=== PATIENT | female | born 1965 | race Caucasian/White ===

== ENCOUNTER → 2018-11-26 | Day surgery (SDC) | payer OTHER, BC ==
[2012-06-15 16:11] VITALS: BP 110/70
--- NOTE | 2018-11-26 11:25 | RAD REPORT ---
EXAM DESCRIPTION: US - Breast Core BX w/US Guidance - 11/26/2018 10:18 am CLINICAL HISTORY: ICD R 92.8 COMPARISON: October 2018 TECHNIQUE: The risks, benefits alternatives to the procedure were explained to the patient and infor med consent obtained. The skin and subcutaneous tissues were anesthetized with Lidocaine. Under sonographic guidance 3 vacu um assisted core biopsies of the small lower retroareolar mass performed. 12 centimeter needle was ut ilized. 2 centimeter core specimens obtained. Specimens were given to pathology. Subsequently a localizing clip was placed. Patient experienced no immediate complication IMPRESSION: Vacuum assisted core biopsies of a small lower retroareolar mass within the right breast
== END ==
LOC: DS 09:27
PROVIDERS: ATTEND Obstetrics & Gynecology
DX: N60.31 Fibrosclerosis of right breast (principal); N64.1 Fat necrosis of breast
CPT/HCPCS: 19083; 88305

== ENCOUNTER 2019-06-14 12:05 | Emergency (ER) | payer BC, OTHER ==
[2019-06-14] MEDS ORDERED: KETOROLAC 30 MG/ML INJ ONE (12:36)
[2019-06-14] MEDS ORDERED: DIAZEPAM 5 MG TABLET ONE (12:36)
--- NOTE | 2019-06-14 13:31 | RAD REPORT ---
EXAM DESCRIPTION: RAD - Forearm Right - 06/14/2019 1:20 pm CLINICAL HISTORY: Fall, right arm pain COMPARISON: None. FINDINGS: No fracture is identified. There is no dislocation or periosteal reaction noted. No foreign body or other soft tissue abnormality. IMPRESSION: Negative right forearm examination.
--- NOTE | 2019-06-14 13:31 | RAD REPORT ---
EXAM DESCRIPTION: RAD - Knee Right 3 View - 06/14/2019 1:20 pm CLINICAL HISTORY: Fall, right knee pain COMPARISON: None. FINDINGS: No fracture, dislocation or periosteal reaction.No joint effusion seen. No joint space katya rowing. No foreign body or other soft tissue abnormality. IMPRESSION: Negative right knee. Clinical concerns for internal derangement or occult bony injury could be further assessed with MR im aging.
--- NOTE | 2019-06-14 13:44 | ER ---
Nurse's Notes [facility] Name: Aida Ahuja Age: 53 yrs Sex: Female : 1965 Arrival Date: 06/14/2019 Time: 12:08 Bed 14 Private MD: Elías Tse Diagnosis: Fall on same level from slipping, tripping and stumbling;Contusion of right forearm;Contusion of right hip;Contusion of right knee Presentation: 06/14 12:15 Presenting complaint: Patient states: I was at work and slipped in the bathroom, pain la1 in right knee and wrist. Transition of care: patient was not received from another setting of care. Onset of symptoms was June 14, 2019. Risk Assessment: Do you want to hurt yourself or someone else? Patient reports no desire to harm self or others. Initial Sepsis Screen: Does the patient meet any 2 criteria? No. Patient's initial sepsis screen is negative. Does the patient have a suspected source of infection? No. Patient's initial sepsis screen is negative. Care prior to arrival: None. 12:15 Method Of Arrival: Ambulatory la1 12:15 Acuity: CARLOS 4 la1 Triage Assessment: 12:15 General: Appears in no apparent distress. uncomfortable, Behavior is calm, cooperative, hj appropriate for age. Pain: Complains of pain in right hand and dorsal aspect of right wrist and right leg and lateral aspect of right knee. 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 - Social history:: Smoking status: Patient/guardian denies using tobacco. - Ebola Screening: : No symptoms or risks identified at this time. Screenin:15 Abuse screen: Denies threats or abuse. Denies injuries from another. Nutritional hj screening: No deficits noted. Tuberculosis screening: No symptoms or risk factors identified. Fall Risk None identified. Assessment: 12:15 General: Appears in no apparent distress. uncomfortable, Behavior is calm, cooperative, hj appropriate for age. Pain: Complains of pain in right hand and dorsal aspect of right wrist and right leg and lateral aspect of right knee. Neuro: Level of Consciousness is awake, alert, obeys commands, Oriented to person, place, time, situation, Appropriate for age. Cardiovascular: Capillary refill < 3 seconds Patient's skin is warm and dry. Respiratory: Airway is patent Respiratory effort is even, unlabored, Respiratory pattern is regular, symmetrical. GI: No signs and/or symptoms were reported involving the gastrointestinal system. Abdomen is. : No signs and/or symptoms were reported regarding the genitourinary system. EENT: No signs and/or symptoms were reported regarding the EENT system. Derm: No signs and/or symptoms reported regarding the dermatologic system. Musculoskeletal: Reports pain in right hand and dorsal aspect of right wrist and right leg and lateral aspect of right knee. Vital Signs: 12:16 BP 125 / 90; Pulse 95; Resp 16; Temp 97.5; Pulse Ox 98% on R/A; Weight 69.4 kg; Height la1 5 ft. 2 in. (157.48 cm); 12:16 Body Mass Index 27.98 (69.40 kg, 157.48 cm) la1 ED Course: 12:08 Patient arrived in ED. mr 12:08 Elías Tse MD is Private Physician. mr 12:15 Triage completed. la1 12:15 Patient has correct armband on for positive identification. Placed in gown. Bed in low hj position. Call light in reach. Side rails up X 1. Adult w/ patient. 12:16 Arm band placed on left wrist. la1 12:18 Maylin Sanchez FNP-C is [facility]. snw 12:18 Aidan Dominique MD is Attending Physician. snw 12:33 Dipesh Doherty, ALEAH is Primary Nurse. hj 13:21 Knee Right 3 View XRAY In Process Unspecified. EDMS 13:21 Forearm Right XRAY In Process Unspecified. EDMS 13:36 Elías Tse MD is Referral Physician. snw Administered Medications: 12:25 Drug: Valium 5 mg Route: PO; hj 13:38 Follow up: Response: No adverse reaction; Anxiety decreased hj 12:25 Drug: TORadol 30 mg Route: IM; Site: right deltoid; hj 13:38 Follow up: Response: No adverse reaction hj Outcome: 13:37 Discharge ordered by . snw 14:18 Patient left the ED. hj Signatures: Dispatcher [employer] Maylin Paniagua, METAL FILER-C METAL FILER-Csnw Campos Akua mr Elvin Cervantes, RN RN la1 Dipesh Doherty, ALEAH RN hj
--- NOTE | 2019-06-14 13:45 | EDPHYS ---
Physician Documentation [facility] Name: Aida Ahuja Age: 53 yrs Sex: Female : 1965 Arrival Date: 06/14/2019 Time: 12:08 Bed 14 Private MD: Elías Tse ED Physician Aidan Dominique HPI: 06/14 12:27 This 53 yrs old Female presents to ER via Ambulatory with complaints of Fall snw Injury. 12:27 Details of fall: The patient fell from an upright position, slipped on wet floor in the snw bathroom at work. Onset: The symptoms/episode began/occurred suddenly, just prior to arrival. Associated injuries: The patient sustained right wrist, right hip, and right knee, contusion, painful injury. Severity of symptoms: At their worst the symptoms were moderate. The patient has not experienced similar symptoms in the past. It is unknown whether or not the patient has recently seen a physician. 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 - Social history:: Smoking status: Patient/guardian denies using tobacco. - Ebola Screening: : No symptoms or risks identified at this time. ROS: 12:26 Constitutional: Negative for fever, chills, and weight loss, Eyes: Negative for injury, snw pain, redness, and discharge, ENT: Negative for injury, pain, and discharge, Neck: Negative for injury, pain, and swelling, Cardiovascular: Negative for chest pain, palpitations, and edema, Respiratory: Negative for shortness of breath, cough, wheezing, and pleuritic chest pain, Abdomen/GI: Negative for abdominal pain, nausea, vomiting, diarrhea, and constipation, Back: Negative for injury and pain, : Negative for injury, bleeding, discharge, and swelling, Skin: Negative for injury, rash, and discoloration, Neuro: Negative for headache, weakness, numbness, tingling, and seizure, Psych: Negative for depression, anxiety, suicide ideation, homicidal ideation, and hallucinations. 12:26 MS/extremity: Positive for contusion, tenderness, of the right wrist, right hip, right knee. Exam: 12:25 Constitutional: This is a well developed, well nourished patient who is awake, alert, snw and in no acute distress. Head/Face: Normocephalic, atraumatic. Eyes: Pupils equal round and reactive to light, extra-ocular motions intact. Lids and lashes normal. Conjunctiva and sclera are non-icteric and not injected. Cornea within normal limits. Periorbital areas with no swelling, redness, or edema. ENT: Nares patent. No nasal discharge, no septal abnormalities noted. Tympanic membranes are normal and external auditory canals are clear. Oropharynx with no redness, swelling, or masses, exudates, or evidence of obstruction, uvula midline. Mucous membranes moist. Neck: Trachea midline, no thyromegaly or masses palpated, and no cervical lymphadenopathy. Supple, full range of motion without nuchal rigidity, or vertebral point tenderness. No Meningismus. Chest/axilla: Normal chest wall appearance and motion. Nontender with no deformity. No lesions are appreciated. Cardiovascular: Regular rate and rhythm with a normal S1 and S2. No gallops, murmurs, or rubs. Normal PMI, no JVD. No pulse deficits. Respiratory: Lungs have equal breath sounds bilaterally, clear to auscultation and percussion. No rales, rhonchi or wheezes noted. No increased work of breathing, no retractions or nasal flaring. Abdomen/GI: Soft, non-tender, with normal bowel sounds. No distension or tympany. No guarding or rebound. No evidence of tenderness throughout. Back: No spinal tenderness. No costovertebral tenderness. Full range of motion. Skin: Warm, dry with normal turgor. Normal color with no rashes, no lesions, and no evidence of cellulitis. Neuro: Awake and alert, GCS 15, oriented to person, place, time, and situation. Cranial nerves II-XII grossly intact. Motor strength 5/5 in all extremities. Sensory grossly intact. Cerebellar exam normal. Normal gait. Psych: Awake, alert, with orientation to person, place and time. Behavior, mood, and affect are within normal limits. 12:25 Musculoskeletal/extremity: Extremities: grossly normal except: noted in the lateral aspect of right knee: contusion, tenderness, noted in the dorsal aspect of right wrist: contusion, swelling, ROM: no acute changes, Circulation is intact in all extremities. Sensation intact. Vital Signs: 12:16 BP 125 / 90; Pulse 95; Resp 16; Temp 97.5; Pulse Ox 98% on R/A; Weight 69.4 kg; Height la1 5 ft. 2 in. (157.48 cm); 12:16 Body Mass Index 27.98 (69.40 kg, 157.48 cm) la1 MDM: 12:18 Patient medically screened. snw 13:38 Data reviewed: vital signs, nurses notes. Data interpreted: Pulse oximetry: on room air snw is 98 %. Interpretation: normal. Counseling: I had a detailed discussion with the patient and/or guardian regarding: the historical points, exam findings, and any diagnostic results supporting the discharge/admit diagnosis, the presence of at least one elevated blood pressure reading (>120/80) during this emergency department visit, radiology results, the need for outpatient follow up, to return to the emergency department if symptoms worsen or persist or if there are any questions or concerns that arise at home. Special discussion: I have referred the patient to see his PCP for further evaluation of high blood pressure. Based on the history and exam findings, there is no indication for further emergent testing or inpatient evaluation. I discussed with the patient/guardian the need to see the primary care provider for further evaluation of the symptoms. 06/14 12:24 Order name: Knee Right 3 View XRAY; Complete Time: 13:36 snw 06/14 12:24 Order name: Forearm Right XRAY; Complete Time: 13:36 snw 06/14 13:40 Order name: Wrist Splint: velcro - right; Complete Time: 13:47 snw 06/14 13:40 Order name: Mason wrap-joint: right knee; Complete Time: 13:47 snw Administered Medications: 12:25 Drug: Valium 5 mg Route: PO; hj 13:38 Follow up: Response: No adverse reaction; Anxiety decreased hj 12:25 Drug: TORadol 30 mg Route: IM; Site: right deltoid; hj 13:38 Follow up: Response: No adverse reaction hj Disposition: 15:16 Co-signature as Attending Physician, Aidan Dominique MD. rn Disposition: 06/14/19 13:37 Discharged to Home. Impression: Fall on same level from slipping, tripping and stumbling, Contusion of right forearm, Contusion of right hip, Contusion of right knee. - Condition is Stable. - Discharge Instructions: Elastic Bandage and RICE, Contusion, Cast or Splint Care, Adult, Fall Prevention in the Home. - Prescriptions for Diclofenac Sodium 75 mg Oral Tablet Sustained Release - take 1 tablet by ORAL route 2 times per day; 30 tablet. orphenadrine citrate 100 mg Oral Tablet Sustained Release - take 1 tablet by ORAL route 2 times per day As needed; 20 tablet. - Work release form, Medication Reconciliation Form, Thank You Letter, Antibiotic Education, Prescription Opioid Use form. - Follow up: Elías Tse MD; When: 2 - 3 days; Reason: Recheck today's complaints, Continuance of care, Re-evaluation by your physician. Follow up: Emergency Department; When: As needed; Reason: Worsening of condition. Signatures: Dispatcher [employer] EDMS Maylin Sanchez, CAMPAIGN MANAGER-C CAMPAIGN MANAGER-Csnw Aidan Dominique MD MD rn Attema, Lee, RN RN laDipesh Calderón RN RN hj Corrections: (The following items were deleted from the chart) 14:18 13:37 06/14/2019 13:37 Discharged to Home. Impression: Fall on same level from hj slipping, tripping and stumbling; Contusion of right forearm; Contusion of right hip; Contusion of right knee. Condition is Stable. Forms are Medication Reconciliation Form, Thank You Letter, Antibiotic Education, Prescription Opioid Use. Follow up: Elías Tse; When: 2 - 3 days; Reason: Recheck today's complaints, Continuance of care, Re-evaluation by your physician. Follow up: Emergency Department; When: As needed; Reason: Worsening of condition. snw
[2019-06-14 16:44] VITALS: BP 125/90; TEMP 97.5; O2SAT 98
== END 2019-06-14 14:18 | disposition home or self-care (01) ==
LOC: ER 12:05
DX: S50.11XA Contusion of right forearm, initial encounter (principal); S70.01XA Contusion of right hip, initial encounter; S80.01XA Contusion of right knee, initial encounter; W01.0XXA Fall on same level from slipping, tripping and stumbling without subsequent striking against object, initial encounter; Y93.9 Activity, unspecified; Y92.89 Other specified places as the place of occurrence of the external cause; Y99.8 Other external cause status
CPT/HCPCS: 96372; 99283

== ENCOUNTER 2019-10-13 06:15 | Day surgery (SDC) | payer OTHER, BC ==
[2019-10-06 11:07] LABS: Urine Appearance CLEAR; Urine Bilirubin NEGATIVE (NEG); Urine Blood NEGATIVE (NEG); Urine Color YELLOW; Urine Glucose NEGATIVE (NEG); Urine Protein NEGATIVE (NEG); Urine Specific Gravity >=1.030 (1.005-1.030); Urine Urobilinogen 0.2 mg/dL (0.2-1.0); Urine pH 7.5 (5.0-7.0)
[2019-10-06 11:10] LABS: Absolute Lymphocytes (CBC) 1.9 K/uL (0.7-4.9); Basophils % 1.1 % (0-1.3); Hematocrit 44.2 % (36.0-45.0); Lymphocytes % 28.3 % (15.3-44.8); MPV 9.8 fL (7.6-11.3); RBC Red Blood Cell Count 4.61 M/uL (3.86-4.86)
[2019-10-06 11:14] LABS: Protime INR 1.04
[2019-10-06 11:24] LABS: Urine Microscopic Reflex ORDER UMIC
[2019-10-06 11:34] LABS: Potassium 3.9 mmol/L (3.5-5.1)
[2019-10-06 11:57] LABS: Urine Bacteria <20 /HPF (<20); Urine RBC <5 /HPF (NONE SEEN)
[2019-10-06 11:58] LABS: Urine Culture Reflex Order REFLEXED
[2019-10-13] MEDS ORDERED: Ringers Lactate 1,000 ML IV ONE ×3 (06:41→11:17)
[2019-10-13] MEDS ORDERED: SCOPOLAMINE HYDROBROMIDE PATCH TD ONE ×2 (06:41→07:00)
[2019-10-13] MEDS ORDERED: dexAMETHasone 10 MG/ML VIAL ONE (07:04)
[2019-10-13] MEDS ORDERED: propofoL 200 MG/20 ML VIAL IV ONE (07:04)
[2019-10-13] MEDS ORDERED: LIDOCAINE 2% MPF 5 ML VIAL ONE (07:04)
[2019-10-13] MEDS ORDERED: ROCURONIUM 50 MG/5 ML VIAL IV ONE (07:04)
[2019-10-13] MEDS ORDERED: ONDANSETRON 4 MG/2 ML VIAL ONE (07:05)
[2019-10-13] MEDS ORDERED: MIDAZOLAM HCL 2 MG/2 ML INJ ONE (07:05)
[2019-10-13] MEDS ORDERED: FENTANYL CITR 250 MCG/5 ML ONE (07:05)
[2019-10-13] MEDS ORDERED: NS 0.9% VIAL 0 ML ONE (07:20)
[2019-10-13] MEDS ORDERED: VASOPRESSIN 20 UNIT/ML VIAL ONE ×2 (07:21→07:32)
[2019-10-13] MEDS ORDERED: CEFAZOLIN/SWI 1gm 1 GM/10 ML SYR ONE (07:21)
[2019-10-13] MEDS ORDERED: BUPIVACAINE 0.25% PF 10 ML VIAL ONE ×2 (07:24→07:51)
[2019-10-13] MEDS ORDERED: CEFAZOLIN SODIUM 1 GM/VIAL ONE (07:32)
[2019-10-13] MEDS ORDERED: NA CHLORIDE 0.9% 100 ML IV ONE (07:33)
[2019-10-13] MEDS ORDERED: NS 0.9% VIAL 10 ML ONE (07:34)
[2019-10-13] MEDS: CEFAZOLIN/SWI 2gm 2 GM/20 ML SYR ONE ×2 (08:00→08:33)
[2019-10-13] MEDS ORDERED: FENTANYL CITR 100 MCG/2 ML ONE (10:55)
[2019-10-13] MEDS ORDERED: KETOROLAC 30 MG/ML INJ ONE (12:18)
[2019-10-13] MEDS ORDERED: MORPHINE 4 MG/ML SYR IV PRN (12:52)
[2019-10-13] MEDS ORDERED: IBUPROFEN 600 MG TAB PO PRN (12:52)
[2019-10-13] MEDS ORDERED: ONDANSETRON 4 MG (ODT) TAB PO PRN (12:52)
[2019-10-13] MEDS ORDERED: PROMETHAZINE INJ 25 MG/ML AMP IV PRN (12:52)
[2019-10-13] MEDS: HYDROMORPHONE HCL 1 MG/ML INJ ONE ×4 (12:53→13:09)
--- NOTE | 2019-10-13 13:06 | P.BOP ---
Preoperative diagnosis: anterior posterior and vault prolapse, posterior enterocele, GENESIS Postoperative diagnosis: same, apical enterocele Primary procedure: laparoscopic USLS colpopexy, lapsc apical enterocele repair Secondary procedure: post enterocele&post wall repair, MUS (TVT-O), perineorrhaphy, cystoscopy Other procedure(s): PHILIPP Mechanical Assembly: Aurelio Cortez Estimated blood loss: 50 Specimen: none Findings: apical enterocele (fascial defect at cuff), RVS defect distal third Anesthesia: General Complications: None Drain(s): Urinary catheter Implants: TVT-O Transferred to: Recovery Room Condition: Good (four ports, cristóbal flynn retraction stitch, USL robust, welldefined, reattached with goretex one on each side and PDSprox attachment, site specific repair)
[2019-10-13 13:11] VITALS: O2SAT 98
[2019-10-13 13:47] VITALS: BMI 29.2
--- NOTE | 2019-10-13 16:34 | P.OP ---
Preoperative diagnosis: Intra-abdominal adhesions Postoperative diagnosis: Intra-abdominal adhesions Primary procedure: Laparoscopic adhesiolysis Anesthesia: GETA Estimated blood loss: <2cc Specimen: none Findings: apical enterocele (fascial defect at cuff), RVS defect distal third Complications: None Drain(s): Urinary catheter Transferred to: Recovery Room Condition: Good
[2019-10-13] MEDS: HYDROCODONE/APAP 5/325 MG TAB PO PRN (17:11)
[2019-10-13] MEDS: Ringers Lactate 1,000 ML IV SCH (18:11)
[2019-10-14] MEDS: HYDROCODONE/APAP 5/325 MG TAB PO PRN ×2 (00:10→09:50)
[2019-10-14] MEDS ORDERED: Ringers Lactate 1,000 ML IV ONE (00:30)
--- NOTE | 2019-10-14 01:38 | OP ---
Date of Procedure: 10/13/2019 Surgeon: Aurelio Cortez MD, Preoperative Diagnosis: Intraabdominal adhesions. Postoperative Diagnosis: Intraabdominal adhesions. Procedure Performed: Laparoscopic adhesiolysis. Nursing Staff Development Coordinator Surgeon: Aurelio Cortez M.D. Anesthesia: General endotracheal. Estimated Blood Loss: 2 mL. Specimen: None. Findings: Atypical enterocele. Please see Dr. Amaral's note for full details regarding her proced ure. I was co surgeon/surgical specialist for the majority with the exception of the laparoscopic adhesi olysis. Complications: None. Drains: Urinary catheter. Disposition: Transferred to recovery room in good condition. Procedure In Detail: Please see Dr. Amaral's note for complete details regarding intraabdominal in jury. I assisted with laparoscopic adhesiolysis on the anterior surface and posterior surface of the vaginal vault. I helped with dissection of the bladder off the anterior surface of the vagina as we ll as the rectum off the posterior aspect of the vagina using both blunt and sharp dissection. After this was completed, Dr. Amaral resumed her portion of the procedure. Please see her note for compl ete details. TK/MODL Voice ID: [id number] Report ID: [id number]
[2019-10-14] MEDS: Ringers Lactate 1,000 ML IV SCH (02:16)
[2019-10-14 06:41] LABS: Absolute Lymphocytes (CBC) 2.4 K/uL (0.7-4.9); Basophils % 0.3 % (0-1.3); Hematocrit 33.7 % (36.0-45.0); Lymphocytes % 25.9 % (15.3-44.8); MPV 9.8 fL (7.6-11.3); RBC Red Blood Cell Count 3.54 M/uL (3.86-4.86)
[2019-10-14 08:00] VITALS: BP 137/53; TEMP 98
--- NOTE | 2019-11-06 00:54 | OP ---
Date of Procedure: 10/13/2019 Surgeon: Mago Amaral MD Electric Tool Repairer: Dr. Cortez was my school office assistant for this procedure. Preoperative Diagnoses: Vaginal wall prolapse, anterior and posterior prolapse, posterior enterocele , and stress urinary incontinence. Postoperative Diagnoses: Vaginal wall prolapse, anterior and posterior prolapse, posterior enterocel e, stress urinary incontinence, and apical enterocele. Primary Procedures: 1.Laparoscopic uterosacral ligament suspension colpopexy. 2.Laparoscopic apical enterocele repair. 3.Posterior enterocele and posterior wall defect repair. 4.Mid urethral sling (TVT-O). 5.Perineorrhaphy and cystoscopy. 6.Lysis of adhesions. Estimated Blood Loss: 50. Specimens: No specimen. Complications: No complications. Drains: Felton catheter. Implants: TVT-O. Anesthesia: General endotracheal. Indications: Patient is a 53-year-old post hysterectomy patient with symptomatic vaginal bulge and p rolapse. On evaluation, she had a POP-Q of -1, 0, -4, 4, moderate, 6, 6, 7, 0, +2, and NA. The sign ificant stage III defect was posterior. A significant anterior defect was also noted and she was cou nseled on options of using a pessary, physical therapy with observation, surgical treatment with a co lpopexy either uterosacral ligament suspension or sacrocolpopexy with graft augmentation and then ant erior and posterior repairs. She also was found to have stress urinary incontinence that was occult and so mid urethral sling was recommended for home. We discussed all the above things. She had some history of decreased libido and dyspareunia. However, this has been multifactorial and longstanding . For atrophic vaginitis and dyspareunia, she was started Imvexxy vaginal estrogen tab delivery syst em and starting to do slightly better. After consenting her, understanding the benefits and risks of all the procedure including bleeding, i nfection, injury to the bowel, bladder, ureters, possible complications of mesh related erosion, expo sure, dyspareunia, possible recurrence, revision if the sling is too tight, complication of ureter, c omplication of fistula were all reviewed with the patient and she consented. She and her forest diaz were present at the time of preop counseling on the day of surgery as well and she was consented. Description Of Procedure: After she was taken back to OR, 2 g of Ancef were given, placed in supine fashion on the operating table. General anesthesia was given. She was placed in dorsal lithotomy po sition. Pelvic exam was performed. POP-Q as above consistent with preop. Slightly more apical defe ct was noted; however, not significantly different from the preop eval. Abdomen, vulva, vagina, and perineum were prepped and draped in a sterile fashion. Arms were tucked by the side. SCDs were started. Time-out was done and the position of the patient was optimal and c hecked. The Epsilon vaginal retractor was placed in the vagina, Felton to drain the bladder and attached to a drainage bag. Then, 1 cm infraumbilical incision made with a scalpel using the open laparoscopy tech nique. Fascia was incised, tagged with 0 Vicryl sutures. Peritoneum picked up and entered sharply. S-retractors placed. Brittany introduced. Site of entry checked, unremarkable. A 5 mm suprapubic an d two 8 mm left and right lower quadrant ports were placed under direct vision. Patient was placed i n significant Trendelenburg position. All the bowels were moved to the upper abdomen and then both u reteric orifices were well visualized. The sacral promontory was well visualized. It was very clear that there was an apical enterocele where anterior and posterior vaginal moya have likely from the vaginal cuff separation or improper healing after closure. So, this was very evident and t he retractor was being used to retract the prolapse. Then, on inspection, there were robust uterosac ral ligaments. So, plan was to perform uterosacral suspension. Additionally, plan for sacrocolpopex y. Both ureters were in unremarkable and undistorted positions. Both tubes and ovaries were all rem guillermo including the hysterectomy, no complications seen. Bowel was unremarkable as well. So, the ciera dder was picked up; and at the level of the vaginal cuff, peritoneum was opened up. Bladder was diss ected superiorly and the vesicovaginal space was entered. At least 4 cm of the space was dissected a nteriorly midline. Posteriorly, peritoneum was opened laterally on the posterior wall, dissected off the posterior wall of the peritoneum up to the level of the rectum just in case colpopexy needed to be performed. Once this was done, then the uterosacrals were tagged with 3-0 Vicryl sutures and held for retraction. Then, I could see how robust they were; and for that reason we did uterosacral susp ension. Then, the first step in this process was to close the enterocele. 2-0 V-Loc suture was taken in a continuous running fashion. The apical enterocele was closed in 2 la yers starting from [id number]-id-bvks and [id number]-ld-kodzh; and once this was closed and the anterior and pos terior connective tissues were connected together with the suture, the suture was cut and Splendora-Bryan miller ture was taken and placed through the distal uterosacral ligament after visualizing the ureter at the ureteric tunnel medial to lateral, then lateral to medial and going through the posterior wall and t he anterior wall pretty close to the attachment of the uterosacral, and then left on the clamp. Lisandra lar suture was placed on the right side as well in the similar fashion. Then, these 2 sutures were f irst tied down. Then, 0 PDS suture was taken about 3 cm proximal to this Splendora-Bryan suture. The wound was picked up and 0 PDS sutures were placed one on each side and placed through entire depth to reat tach to the vaginal apex both the anterior and posterior moya one on each side. Once these sutures were tied down, the vaginal exam was performed. There was excellent support. The anterior vaginal w all did not need any repair further vaginally. All the trocars were removed. A Luis Alberto-Pipo needle was used to retract the bowel superiorly. Th is was also removed. Tag suture on this was removed. All the trocars were removed. Injected with M arcaine at the port site and skin. Umbilical fascial incision closed with help of [id number] 0 Vicryl. Then, all skin incisions closed with help of interrupted 4-0 Vicryl. Mid urethral area was picked up with the help of 2 Allis clamps, injected with dilute vasopressin. M id urethral incision made about 1 cm in the middle of the urethra 1 cm from the external meatus and 1 cm from the internal meatus. Then, dissection was performed on both sides. After perforating obtur ator membrane, hugging the inferior pubic ramus on the ipsilateral side, then dissection was performe d first on the right then on the left. Then, wing guide was placed. Trocar was passed through this without any problems on the right and left. Then, the mesh was tensioned appropriately. The exit po ints were appropriate to the package instructions. The mesh was trimmed very flush with the skin aft er being tensioned probably, and plastic sheaths and dilators were pulled up. Then, after irrigating with antibiotic solution, the closure was done with help of 2-0 Vicryl in a continuous running horiz ontal mattress fashion. Cystoscopy was performed with a 30-degree lens and normal saline. No evidence of any tumors in the b ladder was noted and strong ureteric jets were noted from both sides. After replacing the Felton, attention directed to the perineum. Two Allis clamps were placed at the level of the old hymenal ring. Then, posteriorly the posterior d efect was mostly about 4.5 to 5 cm. In mid to proximal, another Allis was placed and this place was injected in the midline and on both sides with the help of dilute vasopressin 20 cc. Then, a breezy -shaped skin incision was made on the distal vagina. The loose part of the breezy hitting the vesti bule and the topmost part hitting the topmost part of the defect. Once the epithelium was peeled off the rectovaginal septum, then this was dissected all the way to the right and the left. I could eas claudia see disruption like L stating on the right side and all the way down to the other side. The rect ovaginal septum was also detached from the perineal body. So, plan was to trim it, reattach it where it belonged, reduce the posterior enterocele, and then do a perineorrhaphy. 3-0 Vicryl was used to close in a pursestring fashion the posterior enterocele first. Then, I was ab le to get a 2-0 PDS and reattach the rectovaginal septum to the right lateral wall, and then perineal body repair was done with help of 2-0 Vicryl sutures x3. Then, the PDS was attached to the perineal body and ran up onto the left side and tied. Then, the vaginal epithelial skin was trimmed appropri ately without narrowing the patency of the vaginal canal. Then, the vaginal epithelium once it was t rimmed was closed with the help of 2-0 Vicryl in a continuous running horizontal mattress fashion. T hen, 3-0 Vicryl at the perineum for perineal body repair. Then, the perineal body at the deep transv erse perineum were brought together with the help of a 3-0 Vicryl in a continuous running horizontal mattress fashion. Then, ran all the way down to the tip of the perineal incision and then back up in a subcuticular fashion tying it inside the vestibule. Rectal exam was performed, no evidence of any foreign body or suture or trauma. The Felton was left in place. Packing was placed. Patient was re covered from anesthesia and taken to PACU in stable condition. Her EBL was 50. No complications or drains. All instrument, needle, sponge counts x2 were correct at the end of the case. Patient rafiq ated the procedure well. SUZE/HERMILO Voice ID: [id number] Report ID: [id number]
== END 2019-10-14 10:30 | disposition home or self-care (01) ==
LOC: OR 06:15 → 2ND-WC 12:55 → OR 10-14 10:30
PROVIDERS: ATTEND Obstetrics & Gynecology
PROC: 0UQF0ZZ Repair Cul-de-sac, Open Approach (ICD-10-PCS; 2019-10-13)
PROC: 0JQC0ZZ Repair Pelvic Region Subcutaneous Tissue and Fascia, Open Approach (ICD-10-PCS; 2019-10-13)
PROC: 0HQ9XZZ Repair Perineum Skin, External Approach (ICD-10-PCS; 2019-10-13)
PROC: 0DNW4ZZ Release Peritoneum, Percutaneous Endoscopic Approach (ICD-10-PCS; 2019-10-13)
PROC: 0USG7ZZ Reposition Vagina, Via Natural or Artificial Opening (ICD-10-PCS; principal; 2019-10-13 07:30)
DX: N99.3 Prolapse of vaginal vault after hysterectomy (principal); N39.3 Stress incontinence (female) (male); N94.12 Deep dyspareunia; N95.2 Postmenopausal atrophic vaginitis; K66.0 Peritoneal adhesions (postprocedural) (postinfection)
CPT/HCPCS: 57283; 57265; 49329; 85025 ×2; 87086; 80048; 36415 ×2; 86900; 86850; 85610; 86901; 85730; J2704; J2250; J3010 ×2; J1100; J1170 ×2; J0690 ×3; J7120 ×5; J2405; 81003; 81015; 87088

== ENCOUNTER 2019-11-13 09:43 | Emergency (ER) | payer OTHER, BC ==
[2019-11-13] MEDS ORDERED: ONDANSETRON 4 MG/2 ML VIAL ONE (10:39)
[2019-11-13] MEDS ORDERED: NA CHLORIDE 0.9% 1,000 ML ONE (10:39)
[2019-11-13 10:57] LABS: Absolute Lymphocytes (CBC) 2.3 K/uL (0.7-4.9); Basophils % 1.1 % (0-1.3); Hematocrit 42.6 % (36.0-45.0); Lymphocytes % 33.3 % (15.3-44.8); MPV 10.1 fL (7.6-11.3)
[2019-11-13 11:06] LABS: Urine Blood TRACE (NEG); Urine Glucose NEGATIVE (NEG); Urine Protein NEGATIVE (NEG); Urine Specific Gravity >1.030 (1.005-1.030); Urine pH 5.5 (5.0-7.0)
[2019-11-13] MEDS ORDERED: PROMETHAZINE INJ 25 MG/ML AMP ONE (11:12)
[2019-11-13 11:16] LABS: ALT/SGPT 26 U/L (12-78); AST/SGOT 14 U/L (15-37); Albumin 3.5 g/dL (3.4-5.0); Alkaline Phosphatase 74 U/L (45-117); BUN Blood Urea Nitrogen 12 mg/dL (7-18); Bicarbonate 29 mmol/L (21-32); Bilirubin Direct < 0.1 mg/dL (0-0.2); Bilirubin Total 0.2 mg/dL (0.2-1.0); Glucose Level 91 mg/dL (74-106); Lipase 127 U/L (73-393); Potassium 3.8 mmol/L (3.5-5.1); Sodium Level 142 mmol/L (136-145)
--- NOTE | 2019-11-13 11:58 | EKG ---
Test Date: 2019-11-13 Test Time: 11:47:01 Claims Supervisor: URSZULA MEASUREMENT RESULTS: Intervals: Rate: 85 OR: 156 QRSD: 76 QT: 394 QTc: 468 Cascilla: P: 60 OR: 156 QRS: 67 T: 69 INTERPRETIVE STATEMENTS: Normal sinus rhythm Normal ECG Compared to ECG 06/15/2012 13:54:18 No significant changes Electronically Signed On 11-13-19 11:57:56 COLLATING MACHINE OPERATOR by Tristan Cartwright
--- NOTE | 2019-11-13 12:24 | ER ---
Nurse's Notes [facility] Name: Aida Ahuja Age: 53 yrs Sex: Female : 1965 Arrival Date: 11/13/2019 Time: 09:45 Bed 2 Private MD: Mago Amaral K Diagnosis: Nausea and vomiting Presentation: 11/13 10:10 Presenting complaint: Patient states: N/V that began yesterday. Pt states, "I've been ss having the weirdest dreams, but when I get up it feels like I'm still asleep.". Transition of care: patient was not received from another setting of care. Onset of symptoms was November 12, 2019. Risk Assessment: Do you want to hurt yourself or someone else? Patient reports no desire to harm self or others. Initial Sepsis Screen: Does the patient meet any 2 criteria? No. Patient's initial sepsis screen is negative. Does the patient have a suspected source of infection? No. Patient's initial sepsis screen is negative. Care prior to arrival: None. 10:10 Method Of Arrival: Ambulatory ss 10:10 Acuity: CARLOS 3 ss TEAROOM HOSTESS: 11:55 LMP N/A - Post-menopause jl7 Historical: - Allergies: 10:12 Levaquin; ss - Home Meds: 11:56 venlafaxine 37.5 mg Oral tr24 1 tab once daily for Vasomotor Symptoms associated with jl7 Menopause [Active]; - PMHx: 10:12 Celiac Disease; ss - Immunization history:: Adult Immunizations up to date. - Coronavirus screen:: The patient has NOT traveled to [place], [place], or [place] in the past 14 days. Proceed with normal triage process as indicated. - Social history:: Smoking status: Patient denies any tobacco usage or history of. - Ebola Screening: : Patient denies exposure to infectious person Patient denies travel to an Ebola-affected area in the 21 days before illness onset. Screenin:25 Abuse screen: Denies threats or abuse. Denies injuries from another. Nutritional jl7 screening: No deficits noted. Tuberculosis screening: No symptoms or risk factors identified. Fall Risk None identified. Assessment: 10:23 General: Appears in no apparent distress. uncomfortable, Behavior is calm, cooperative, jl7 appropriate for age. Pain: Denies pain. Neuro: Level of Consciousness is awake, alert, obeys commands, Oriented to person, place, time, situation. Cardiovascular: Patient's skin is warm and dry. Respiratory: Airway is patent Respiratory effort is even, unlabored, Respiratory pattern is regular, symmetrical, Denies cough, shortness of breath. GI: Abdomen is non-distended, Reports nausea, vomiting. : No signs and/or symptoms were reported regarding the genitourinary system. EENT: No signs and/or symptoms were reported regarding the EENT system. Derm: Skin is pink, warm \\T\\ dry. 11:10 Reassessment: Pt reports no change in nausea, ERP notified, see MAR for orders. jl7 11:30 Reassessment: Patient states symptoms have improved. jl7 11:54 Reassessment: Patient appears in no apparent distress at this time. No changes from jl7 previously documented assessment. Patient and/or family updated on plan of care and expected duration. Pain level reassessed. Patient is alert, oriented x 3, equal unlabored respirations, skin warm/dry/pink. 12:27 Reassessment: Patient appears in no apparent distress at this time. Patient and/or ae4 family updated on plan of care and expected duration. Pain level reassessed. Patient states she feels better, "just sleepy" Patient states feeling better. Patient states symptoms have improved. Vital Signs: 10:12 BP 128 / 89; Pulse 90; Resp 17; Temp 97.0(TE); Pulse Ox 100% on R/A; Weight 72.57 kg; ss Height 5 ft. 2 in. (157.48 cm); Pain 0/10; 10:25 BP 153 / 78; Pulse 85; Resp 19 S; Pulse Ox 100% on R/A; Pain 0/10; jl7 11:00 BP 129 / 72; Pulse 79; Resp 19 S; Pulse Ox 98% on R/A; jl7 12:24 BP 112 / 62; Pulse 80; Resp 16; Pulse Ox 99% on R/A; ae4 10:12 Body Mass Index 29.26 (72.57 kg, 157.48 cm) ED Course: 09:45 Patient arrived in ED. as 09:45 Mago Amaral MD is Private Physician. as 10:11 Triage completed. ss 10:12 Arm band placed on right wrist. ss 10:16 Pia Royal RN is Primary Nurse. jl7 10:16 [facility] pm1 10:16 Marek Mcqueen MD is Attending Physician. pm1 10:25 Patient has correct armband on for positive identification. Placed in gown. Bed in low jl7 position. Call light in reach. Side rails up X 1. telephone mechanic on. Pulse ox on. NIBP on. Warm blanket given. 10:50 Initial lab(s) drawn, by ms, sent to lab. Inserted saline lock: 22 gauge in right jl7 antecubital area, using aseptic technique. Blood collected. 11:01 Urine collected: clean catch specimen, cloudy, kristopher colored. jb1 11:51 EKG done, by ED staff, reviewed by Curtis Chavez NP. jb1 12:45 No provider procedures requiring assistance completed. IV discontinued, intact, ae4 bleeding controlled, No redness/swelling at site. Pressure dressing applied. Administered Medications: 10:50 Drug: NS 0.9% 1000 ml Route: IV; Rate: 1000 ml; Site: right antecubital; jl7 12:47 Follow up: IV Status: Completed infusion ae4 12:47 Follow up: IV Intake: 1000ml ae4 10:50 Drug: Zofran 4 mg Route: IVP; Site: right antecubital; jl7 11:13 Follow up: Response: Nausea unchanged jl7 11:10 Drug: Phenergan 12.5 mg Route: IVP; Site: right antecubital; jl7 11:30 Follow up: Response: No adverse reaction; Nausea is decreased jl7 Intake: 12:47 IV: 1000ml; Total: 1000ml. ae4 Outcome: 12:24 Discharge ordered by . pm1 12:47 Discharged to home ambulatory, with family. ae4 12:47 Condition: stable 12:47 Discharge instructions given to patient, Instructed on discharge instructions, follow up and referral plans. medication usage, Demonstrated understanding of instructions, Prescriptions given X 2. 12:48 Patient left the ED. ae4 Signatures: Bob Merrill jb1 Evelina Simmons Shelby, RN RN Curtis Chavez, [employer] pm1 Pia Royal RN RN jl7 Alfredo Rubio, RN RN ae4
--- NOTE | 2019-11-13 12:24 | EDPHYS ---
Physician Documentation [facility] Name: Aida Ahuja Age: 53 yrs Sex: Female : 1965 Arrival Date: 11/13/2019 Time: 09:45 Bed 2 Private MD: Mago Amaral K ED Physician Marek Mcqueen HPI: 11/13 10:27 This 53 yrs old Female presents to ER via Ambulatory with complaints of pm1 Nausea/Vomiting. 10:27 The patient presents to the emergency department with nausea, vomiting, 10 times since pm1 the onset of symptoms, described as bilious. Onset: The symptoms/episode began/occurred yesterday. Possible causes: unknown. The symptoms are aggravated by nothing. The symptoms are alleviated by nothing. Associated signs and symptoms: Pertinent positives: chills, Pertinent negatives: abdominal pain, constipation, diarrhea, dysuria. Severity of symptoms: Pain is currently a 0 / 10. It is unknown whether or not the patient has recently seen a physician. 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 - Coronavirus screen:: The patient has NOT traveled to [place], [place], or [place] in the past 14 days. Proceed with normal triage process as indicated. - Social history:: Smoking status: Patient denies any tobacco usage or history of. - Ebola Screening: : Patient denies exposure to infectious person Patient denies travel to an Ebola-affected area in the 21 days before illness onset. ROS: 10:27 Eyes: Negative for injury, pain, redness, and discharge, ENT: Negative for injury, pm1 pain, and discharge, Neck: Negative for injury, pain, and swelling, Cardiovascular: Negative for chest pain, palpitations, and edema, Respiratory: Negative for shortness of breath, cough, wheezing, and pleuritic chest pain. 10:27 Back: Negative for injury and pain, MS/Extremity: Negative for injury and deformity, Skin: Negative for injury, rash, and discoloration. 10:27 Neuro: Negative for headache, weakness, numbness, tingling, and seizure. 10:27 Constitutional: Positive for chills, Negative for 10:27 Abdomen/GI: Positive for nausea and vomiting, Negative for abdominal pain, diarrhea, constipation. Exam: 10:27 Constitutional: This is a well developed, well nourished patient who is awake, alert, pm1 and in no acute distress. Head/Face: Normocephalic, atraumatic. Eyes: Pupils equal round and reactive to light, extra-ocular motions intact. Lids and lashes normal. Conjunctiva and sclera are non-icteric and not injected. Cornea within normal limits. Periorbital areas with no swelling, redness, or edema. Neck: Trachea midline, no thyromegaly or masses palpated, and no cervical lymphadenopathy. Supple, full range of motion without nuchal rigidity, or vertebral point tenderness. No Meningismus. Chest/axilla: Normal chest wall appearance and motion. Nontender with no deformity. No lesions are appreciated. Cardiovascular: Regular rate and rhythm with a normal S1 and S2. No gallops, murmurs, or rubs. Normal PMI, no JVD. No pulse deficits. Respiratory: Lungs have equal breath sounds bilaterally, clear to auscultation and percussion. No rales, rhonchi or wheezes noted. No increased work of breathing, no retractions or nasal flaring. Back: No spinal tenderness. No costovertebral tenderness. Full range of motion. Skin: Warm, dry with normal turgor. Normal color with no rashes, no lesions, and no evidence of cellulitis. MS/ Extremity: Pulses equal, no cyanosis. Neurovascular intact. Full, normal range of motion. 10:27 Abdomen/GI: Inspection: abdomen appears normal, Bowel sounds: normal, Palpation: mild abdominal tenderness, in the suprapubic area, mass, is not appreciated, rebound tenderness, is not appreciated. 10:27 Neuro: Orientation: is normal, Motor: is normal, moves all fours. Vital Signs: 10:12 BP 128 / 89; Pulse 90; Resp 17; Temp 97.0(TE); Pulse Ox 100% on R/A; Weight 72.57 kg; ss Height 5 ft. 2 in. (157.48 cm); Pain 0/10; 10:25 BP 153 / 78; Pulse 85; Resp 19 S; Pulse Ox 100% on R/A; Pain 0/10; jl7 11:00 BP 129 / 72; Pulse 79; Resp 19 S; Pulse Ox 98% on R/A; jl7 12:24 BP 112 / 62; Pulse 80; Resp 16; Pulse Ox 99% on R/A; ae4 10:12 Body Mass Index 29.26 (72.57 kg, 157.48 cm) ss MDM: 10:19 Patient medically screened. pm1 12:22 Data reviewed: vital signs. Data interpreted: Pulse oximetry: on room air is 98 %. pm1 Interpretation: normal. 12:22 Counseling: I had a detailed discussion with the patient and/or guardian regarding: the pm1 historical points, exam findings, and any diagnostic results supporting the discharge/admit diagnosis, lab results, the need for outpatient follow up, to return to the emergency department if symptoms worsen or persist or if there are any questions or concerns that arise at home. 12:22 Special discussion: Based on the patient's Hx, exam, and Dx evaluation, there is no pm1 indication for emergent surgery or inpatient Tx. It is understood by the patient/guardian that if the Sx's persist or worsen they need to return immediately for re-evaluation. 11/13 10:27 Order name: Basic Metabolic Panel pm1 11/13 10:27 Order name: CBC with Diff; Complete Time: 11:17 pm11/13 10:27 Order name: Creatinine for Radiology; Complete Time: 11:17 pm11/13 10:27 Order name: Hepatic Function; Complete Time: 11:17 pm11/13 10:27 Order name: Lipase; Complete Time: 11:17 pm11/13 10:27 Order name: Flu; Complete Time: 11:17 pm11/13 10:27 Order name: Basic Metabolic Panel; Complete Time: 11:17 EDMS 11/13 10:56 Order name: Urine Dipstick--Ancillary (enter results); Complete Time: 11:17 ms 11/13 10:56 Order name: Urine --Ancillary (enter results); Complete Time: 11:17 ms 11/13 11:21 Order name: Troponin (emerg Dept Use Only); Complete Time: 12:10 pm11/13 11:21 Order name: EKG; Complete Time: 11:25 pm1 11/13 10:27 Order name: IV Saline Lock; Complete Time: 10:50 pm11/13 10:27 Order name: Labs collected and sent; Complete Time: 10:51 pm11/13 10:27 Order name: Urine Dipstick-Ancillary (obtain specimen); Complete Time: 10:50 pm11/13 10:27 Order name: Urine Test (obtain specimen); Complete Time: 10:50 pm11/13 11:21 Order name: EKG - Nurse/Tech; Complete Time: 11:51 pm1 Administered Medications: 10:50 Drug: NS 0.9% 1000 ml Route: IV; Rate: 1000 ml; Site: right antecubital; jl7 12:47 Follow up: IV Status: Completed infusion ae4 12:47 Follow up: IV Intake: 1000ml ae4 10:50 Drug: Zofran 4 mg Route: IVP; Site: right antecubital; jl7 11:13 Follow up: Response: Nausea unchanged jl7 11:10 Drug: Phenergan 12.5 mg Route: IVP; Site: right antecubital; jl7 11:30 Follow up: Response: No adverse reaction; Nausea is decreased jl7 Disposition: 21:13 Co-signature as Attending Physician, Marek Mcqueen MD I agree with the assessment and kdr plan of care. Disposition: 11/13/19 12:24 Discharged to Home. Impression: Nausea and vomiting. - Condition is Stable. - Discharge Instructions: Nausea and Vomiting, Adult. - Prescriptions for Phenergan 25 mg Rectal Suppository - insert 1 suppository by RECTAL route every 6 hours As needed; 12 suppository. promethazine 25 mg Oral Tablet - take 1 tablet by ORAL route every 6 hours As needed; 20 tablet. - Medication Reconciliation Form, Thank You Letter, Antibiotic Education, Prescription Opioid Use form. - Follow up: Emergency Department; When: As needed; Reason: Worsening of condition. Follow up: Private Physician; When: 2 - 3 days; Reason: Recheck today's complaints, Continuance of care, Re-evaluation by your physician. - Problem is new. - Symptoms have improved. Signatures: Dispatcher [facility] Marek Mcqueen MD MD kdr Smirch, Shelby, RN RN ss Curtis Chavez NP SWAGE TENDER pm1 Pia Royal RN RN jl7 Alfredo Rubio RN RN ae4 Corrections: (The following items were deleted from the chart) 12:48 12:24 11/13/2019 12:24 Discharged to Home. Impression: Nausea and vomiting. Condition ae4 is Stable. Forms are Medication Reconciliation Form, Thank You Letter, Antibiotic Education, Prescription Opioid Use. Follow up: Emergency Department; When: As needed; Reason: Worsening of condition. Follow up: Private Physician; When: 2 - 3 days; Reason: Recheck today's complaints, Continuance of care, Re-evaluation by your physician. Problem is new. Symptoms have improved. pm1
[2019-11-13 13:07] VITALS: TEMP 97
[2019-11-13 13:10] VITALS: BP 112/62; O2SAT 99
== END 2019-11-13 12:48 | disposition home or self-care (01) ==
LOC: ER 09:43
DX: R11.2 Nausea with vomiting, unspecified (principal); Z88.1 Allergy status to other antibiotic agents
CPT/HCPCS: 96361; 93005; 85025; 80048; 36415; 81025; 80076; 81003; 84484; 83690; 87804 ×2; 96375; 96374; 99284; J2550; J7030; J2405

== ENCOUNTER 2021-03-15 13:00 | Emergency (ER) | payer OTHER, BC ==
--- OUTSIDE RECORDS SUMMARY | 2021-03-15 13:03 | XMS REPORT | Continuity of Care Document ---
:1965 Author Organization [facility] t Address [address] [place] [address] Care Team Providers Name Role Phone Pob1, Care Clinic Attending Clinician Unavailable Lab, Fam Pob I Attending Clinician Unavailable Problems This patient has no known problems. Allergies, Adverse Reactions, Alerts This patient has no known allergies or adverse reactions. Medications This patient has no known medications. Procedures This patient has no known procedures. Encounters Start End Encounter Admission Attending Care Care Encounter Source Date/Time Date/Time Type Type Clinicians Facility Department ID 2020-06-01 2020-06-01 Urgent Pob1, Acute [facility] [id number] 15:06:19 15:49:32 [facility] [id number] [place] [id number] [facility] [phone] [address] 2020-06-01 2020-06-01 Laboratory Lab, Adc [facility] [id number] 14:51:23 15:11:23 Only Fam Pob I Health [id number] [place] [id number] [facility] [phone] [phone] Results This patient has no known results.
[2021-03-15 13:47] LABS: Urine Blood Trace-intact (Negative); Urine Glucose Negative (Negative); Urine Protein Trace (Negative); Urine Specific Gravity >=1.030 (1.005-1.030); Urine pH 5.5 (5.0-7.0)
[2021-03-15 14:01] LABS: Urine Bacteria <20 /HPF (<20); Urine RBC <5 /HPF (NONE SEEN); Urine Yeast PRESENT (NONE SEEN)
[2021-03-15 14:02] LABS: Urine Yeast with Hyphae PRESENT
--- NOTE | 2021-03-15 14:11 | RAD REPORT ---
EXAM DESCRIPTION: Joshua Single View03/15/2021 2:05 pm CLINICAL HISTORY: Abdominal pain and vomiting COMPARISON: 2019 FINDINGS: The lungs appear clear of acute infiltrate. The heart is normal size IMPRESSION: No acute abnormalities displayed
[2021-03-15 14:27] LABS: Absolute Lymphocytes (CBC) 1.7 K/uL (0.7-4.9); Basophils % 0.6 % (0-1.3); Hematocrit 43.5 % (36.0-45.0); Lymphocytes % 26.7 % (15.3-44.8); MPV 9.6 fL (7.6-11.3); RBC Red Blood Cell Count 4.61 M/uL (3.86-4.86)
[2021-03-15 14:35] LABS: Protime INR 1.1
[2021-03-15 14:47] LABS: ALT/SGPT 31 U/L (12-78); AST/SGOT 19 U/L (15-37); Albumin 3.8 g/dL (3.4-5.0); Alkaline Phosphatase 63 U/L (45-117); Amylase 74 U/L (25-115); BUN Blood Urea Nitrogen 11 mg/dL (7-18); Bicarbonate 25 mmol/L (21-32); Bilirubin Direct 0.1 mg/dL (0-0.2); Bilirubin Total 0.4 mg/dL (0.2-1.0); CKMB Creatine Kinase MB 1.1 ng/mL (0.3-3.6); Creatine Phosphokinase 46 U/L (26-192); Glucose Level 97 mg/dL (74-106); Lipase 115 U/L (73-393); Protein, Total 7.3 g/dL (6.4-8.2); Sodium Level 140 mmol/L (136-145); Troponin (Emerg Dept Use Only) < 0.02 ng/mL (0.0-0.045)
[2021-03-15] MEDS ORDERED: NA CHLORIDE 0.9% 2,000 ML ONE (14:47)
[2021-03-15] MEDS ORDERED: MORPHINE 4 MG/ML SYR ONE ×2 (15:10→18:55)
[2021-03-15] MEDS ORDERED: ONDANSETRON 4 MG/2 ML VIAL ONE (15:10)
--- NOTE | 2021-03-15 17:48 | RAD REPORT ---
EXAM DESCRIPTION: CT - Abdomen Pelvis W Contrast - 03/15/2021 5:26 pm CLINICAL HISTORY: Abdominal pain COMPARISON: March 13, 2021 TECHNIQUE: Computed axial tomography of the abdomen pelvis was obtained. 100 cc Isovue-300 was admin istered intravenously. Oral contrast was not requested which limits evaluation of bowel. All CT scans are performed using dose optimization technique as appropriate and may include automated exposure control or mA/KV adjustment according to patient size. FINDINGS: The liver, spleen, pancreas, and adrenals appear unremarkable. Partial duplication right pyelocaliceal structures. 1 millimeter nonobstructing left renal calculus The appendix is normal caliber. There is no evidence of diverticulitis Cholecystectomy. Hysterectomy. No adnexal mass. Small hiatal hernia IMPRESSION: No acute abnormality is displayed.
--- NOTE | 2021-03-15 18:53 | ER ---
Nurse's Notes [facility] Name: Aida Ahuja Age: 55 yrs Sex: Female : 1965 Arrival Date: 03/15/2021 Time: 13:03 Bed 7 Private MD: Diagnosis: Urinary tract infection, site not specified;Acute cystitis Presentation: 03/15 13:20 Chief complaint: Patient states: Sent in by Dr. Cha for IV fluids and antibiotics. ll1 Had seen her early this week had blood draw, CT scan, and urine done. Bad bladder pain for 5 days. Fever was 100 on Thursday. N/V for 2 days. Coronavirus screen: Client denies travel out of the [place] in the last 14 days. At this time, the client does not indicate any symptoms associated with coronavirus-19. Ebola Screen: Patient denies travel to an Ebola-affected area in the 21 days before illness onset. Initial Sepsis Screen: Does the patient meet any 2 criteria? No. Patient's initial sepsis screen is negative. Does the patient have a suspected source of infection? Yes: Acute abdominal pain. Risk Assessment: Do you want to hurt yourself or someone else? Patient reports no desire to harm self or others. Onset of symptoms was March 10, 2021. 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 - Social history:: Smoking status: Patient denies any tobacco usage or history of. Screenin:45 Abuse screen: Denies threats or abuse. Denies injuries from another. Nutritional ca1 screening: No deficits noted. Tuberculosis screening: No symptoms or risk factors identified. Fall Risk IV access (20 points). Assessment: 13:45 General: Appears in no apparent distress. comfortable, Behavior is calm, cooperative, ca1 appropriate for age. Pain: Complains of pain in suprapubic area, right lower quadrant and left lower quadrant Pain currently is 10 out of 10 on a pain scale. Pain began a week PRODUCTION QUALITY ANALYST Is intermittent. Neuro: Level of Consciousness is awake, alert, obeys commands, Oriented to person, place, time, situation. Cardiovascular: Heart tones S1 S2 present Capillary refill < 3 seconds Patient's skin is warm and dry. Respiratory: Airway is patent Respiratory effort is even, unlabored, Respiratory pattern is regular, symmetrical, Breath sounds are clear bilaterally. GI: Abdomen is flat, non-distended, Bowel sounds present X 4 quads. Abd is soft and non tender X 4 quads. : : Urine is cloudy, Reports burning with urination. EENT: No signs and/or symptoms were reported regarding the EENT system. Derm: Skin is intact, is healthy with good turgor, Skin is pink, warm \T\ dry. Musculoskeletal: Circulation, motion, and sensation intact. Capillary refill < 3 seconds. 14:51 Reassessment: Patient appears in no apparent distress at this time. Patient and/or ca1 family updated on plan of care and expected duration. Pain level reassessed. Patient is alert, oriented x 3, equal unlabored respirations, skin warm/dry/pink. 15:50 Reassessment: Patient appears in no apparent distress at this time. Patient and/or ca1 family updated on plan of care and expected duration. Pain level reassessed. Patient is alert, oriented x 3, equal unlabored respirations, skin warm/dry/pink. 16:55 Reassessment: Patient appears in no apparent distress at this time. Patient and/or ca1 family updated on plan of care and expected duration. Pain level reassessed. Patient is alert, oriented x 3, equal unlabored respirations, skin warm/dry/pink. 17:50 Reassessment: Patient appears in no apparent distress at this time. Patient and/or ca1 family updated on plan of care and expected duration. Pain level reassessed. Patient is alert, oriented x 3, equal unlabored respirations, skin warm/dry/pink. 18:53 Reassessment: Patient appears in no apparent distress at this time. Patient is alert, ca1 oriented x 3, equal unlabored respirations, skin warm/dry/pink. 19:20 Reassessment: Patient appears in no apparent distress at this time. Patient is alert, rr5 oriented x 3, equal unlabored respirations, skin warm/dry/pink. discharge instruction given and explained without complaints made. Vital Signs: 13:20 BP 125 / 87; Pulse 93; Resp 17; Temp 98.2; Pulse Ox 98% ; Weight 72.12 kg; Height 5 ft. ll1 2 in. (157.48 cm); Pain 8/10; 14:51 BP 128 / 63; Pulse 77; Resp 16 S; Pulse Ox 100% on R/A; ca1 15:50 BP 117 / 57; Pulse 77; Resp 15 S; Pulse Ox 98% on R/A; ca1 16:50 BP 106 / 62; Pulse 77; Resp 15 S; Pulse Ox 99% on R/A; ca1 17:50 BP 111 / 59; Pulse 69; Resp 18 S; Pulse Ox 100% on R/A; ca1 18:54 BP 112 / 59; Pulse 81; Resp 20 S; Pulse Ox 100% on R/A; ca1 19:21 BP 115 / 70; Pulse 80; Resp 19; Pulse Ox 98% ; rr5 13:20 Body Mass Index 29.08 (72.12 kg, 157.48 cm) ll1 ED Course: 13:03 Patient arrived in ED. as 13:16 Marek Mcqueen MD is Attending Physician. kdr 13:22 Triage completed. ll1 13:22 Arm band placed on. ll1 13:41 Barbi Guillen, ALEAH is Primary Nurse. ca1 13:49 Urine Microscopic Only Sent. ll1 13:58 Urine Microscopic Only Sent. mh5 13:59 Patient has correct armband on for positive identification. Placed in gown. Bed in low mh5 position. Call light in reach. Side rails up X 1. Warm blanket given. monitoring tech on. Pulse ox on. NIBP on. 14:05 Chest Single View XRAY In Process Unspecified. EDMS 14:10 Inserted saline lock: 20 gauge in right antecubital area, using aseptic technique. bp Blood collected. 17:26 CT Abd/Pelvis - IV Contrast Only In Process Unspecified. EDMS 18:50 Mago Amaral MD is Referral Physician. kdr 19:20 No provider procedures requiring assistance completed. IV discontinued, intact, rr5 bleeding controlled, No redness/swelling at site. Pressure dressing applied. Administered Medications: 14:33 Drug: NS 0.9% (30 ml/kg) 30 ml/kg Route: IV; Rate: bolus; Site: right antecubital; ca1 19:21 Follow up: Response: No adverse reaction; IV Status: Completed infusion; IV Intake: rr5 2100ml 14:50 Drug: morphine 4 mg Route: IVP; Site: right antecubital; bp 15:30 Follow up: Response: No adverse reaction; Pain is decreased; RASS: Alert and Calm (0) ca1 14:50 Drug: Zofran (Ondansetron) 4 mg Route: IVP; Site: right antecubital; bp 15:30 Follow up: Response: No adverse reaction; Nausea is decreased ca1 18:35 Drug: Reglan (metoCLOPramide) 10 mg Route: IVP; Site: right antecubital; ca1 19:10 Follow up: Response: No adverse reaction; Nausea is decreased ca1 18:35 Drug: morphine 4 mg {Note: rass 0.} Route: IVP; Site: right antecubital; ca1 19:10 Follow up: Response: No adverse reaction; Pain is decreased; RASS: Alert and Calm (0) ca1 18:43 Drug: Rocephin - (cefTRIAXone) 1 grams Route: IVPB; Infused Over: 30 mins; Site: right ca1 antecubital; 19:09 Follow up: Response: No adverse reaction; IV Status: Completed infusion ca1 Intake: 19:21 IV: 2100ml; Total: 2100ml. rr5 Outcome: 18:52 Discharge ordered by . kdr 19:20 Discharged to home ambulatory. rr5 19:20 Condition: stable 19:20 Discharge instructions given to patient, Instructed on discharge instructions, follow up and referral plans. medication usage, Demonstrated understanding of instructions, follow-up care, medications, Prescriptions given X 4. 19:22 Patient left the ED. rr5 Signatures: Dispatcher [employer] EDMS Marek Mcqueen MD MD kdr Martinez, Amelia as Martinez, Maria 5 Elijah Watkins RN RN Martinez Jean RN RN rr5 Barbi Guillen RN RN ca1 Levon Brownlee RN RN ll1 Corrections: (The following items were deleted from the chart) 14:52 13:45 : ca1 ca1
--- NOTE | 2021-03-15 18:53 | EDPHYS ---
Physician Documentation [facility] Name: Aida Ahuja Age: 55 yrs Sex: Female : 1965 Arrival Date: 03/15/2021 Time: 13:03 Bed 7 Private MD: ED Physician Marek Mcqueen HPI: 03/15 14:44 This 55 yrs old Female presents to ER via Ambulatory with complaints of kdr bladder pain. 14:44 On Thursday the patient began to feel poorly and by Thursday, had an appointment with toi Wadsworth and had blood work done and CT abdomen which was reported to have been negative. She was started on Levaquin for a UTI but has had progressively worsening pain and n/v. She was sent today from Dr. Wadsworth's office for further eval. Onset: The symptoms/episode began/occurred Thursday. Severity of symptoms: At their worst the symptoms were moderate severe incapacitating just prior to arrival, in the emergency department the symptoms are unchanged. The patient has not experienced similar symptoms in the past. The patient has been recently seen by a physician: the patient's primary care provider. 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 - Social history:: Smoking status: Patient denies any tobacco usage or history of. ROS: 14:44 Constitutional: Negative for fever, chills, and weight loss, Eyes: Negative for injury, kdr pain, redness, and discharge, ENT: Negative for injury, pain, and discharge, Neck: Negative for injury, pain, and swelling, Cardiovascular: Negative for chest pain, palpitations, and edema, Respiratory: Negative for shortness of breath, cough, wheezing, and pleuritic chest pain, Back: Negative for injury and pain, : Negative for injury, bleeding, discharge, and swelling, MS/Extremity: Negative for injury and deformity, Skin: Negative for injury, rash, and discoloration, Neuro: Negative for headache, weakness, numbness, tingling, and seizure activity. Psych: Negative for depression, anxiety, suicide ideation, homicidal ideation, and hallucinations, Allergy/Immunology: Negative for hives, rash, and allergies, Endocrine: Negative for neck swelling, polydipsia, polyuria, polyphagia, and marked weight changes, Hematologic/Lymphatic: Negative for swollen nodes, abnormal bleeding, and unusual bruising. 14:44 Abdomen/GI: Positive for abdominal pain, nausea and vomiting, Negative for diarrhea, constipation, abdominal cramps, abdominal distension, black/tarry stool, rectal pain, rectal bleeding, bowel incontinence. Exam: 14:44 Constitutional: This is a well developed, well nourished patient who is awake, alert, kdr and in moderate distress. Head/Face: Normocephalic, atraumatic. Eyes: Pupils equal round and reactive to light, extra-ocular motions intact. Lids and lashes normal. Conjunctiva and sclera are non-icteric and not injected. Cornea within normal limits. Periorbital areas with no swelling, redness, or edema. Neck: Trachea midline, no thyromegaly or masses palpated, and no cervical lymphadenopathy. Supple, full range of motion without nuchal rigidity, or vertebral point tenderness. No Meningismus. Chest/axilla: Normal chest wall appearance and motion. Nontender with no deformity. No lesions are appreciated. Cardiovascular: Regular rate and rhythm with a normal S1 and S2. No gallops, murmurs, or rubs. Normal PMI, no JVD. No pulse deficits. Respiratory: Lungs have equal breath sounds bilaterally, clear to auscultation and percussion. No rales, rhonchi or wheezes noted. No increased work of breathing, no retractions or nasal flaring. Back: No spinal tenderness. No costovertebral tenderness. Full range of motion. Skin: Warm, dry with normal turgor. Normal color with no rashes, no lesions, and no evidence of cellulitis. MS/ Extremity: Pulses equal, no cyanosis. Neurovascular intact. Full, normal range of motion. Neuro: Awake and alert, GCS 15, oriented to person, place, time, and situation. Cranial nerves II-XII grossly intact. Motor strength 5/5 in all extremities. Sensory grossly intact. Cerebellar exam normal. Normal gait. Psych: Awake, alert, with orientation to person, place and time. Behavior, mood, and affect are within normal limits. 14:44 Abdomen/GI: Inspection: abdomen appears normal, Bowel sounds: active, Palpation: soft, mild abdominal tenderness, in the suprapubic area, mass, is not appreciated, rebound tenderness, is not appreciated, voluntary guarding, is not appreciated, involuntary guarding, is not appreciated. Vital Signs: 13:20 BP 125 / 87; Pulse 93; Resp 17; Temp 98.2; Pulse Ox 98% ; Weight 72.12 kg; Height 5 ft. ll1 2 in. (157.48 cm); Pain 8/10; 14:51 BP 128 / 63; Pulse 77; Resp 16 S; Pulse Ox 100% on R/A; ca1 15:50 BP 117 / 57; Pulse 77; Resp 15 S; Pulse Ox 98% on R/A; ca1 16:50 BP 106 / 62; Pulse 77; Resp 15 S; Pulse Ox 99% on R/A; ca1 17:50 BP 111 / 59; Pulse 69; Resp 18 S; Pulse Ox 100% on R/A; ca1 18:54 BP 112 / 59; Pulse 81; Resp 20 S; Pulse Ox 100% on R/A; ca1 19:21 BP 115 / 70; Pulse 80; Resp 19; Pulse Ox 98% ; rr5 13:20 Body Mass Index 29.08 (72.12 kg, 157.48 cm) ll1 MDM: 14:44 Data reviewed: vital signs, nurses notes, lab test result(s), radiologic studies. kdr Counseling: I had a detailed discussion with the patient and/or guardian regarding: the historical points, exam findings, and any diagnostic results supporting the discharge/admit diagnosis, lab results, radiology results. 18:52 Patient medically screened. kdr 18:54 Response to treatment: the patient's symptoms have markedly improved after treatment, kdr patient is well hydrated. Special discussion: Based on the patient's Hx, exam, and Dx evaluation, there is no indication for emergent surgery or inpatient Tx. It is understood by the patient/guardian that if the Sx's persist or worsen they need to return immediately for re-evaluation. I discussed with the patient/guardian in detail that at this point there is no indication for admission to the hospital. It is understood, however, that if the symptoms persist or worsen the patient needs to return immediately for re-evaluation. ED course: PMPAware: Narc 050, Sed: 030, Stim: 00, ODR: 230. 03/15 13:42 Order name: Amylase, Serum [facility] 03/15 13:42 Order name: Basic Metabolic Panel [facility] 03/15 13:42 Order name: Blood Culture Adult (2) [facility] 03/15 13:42 Order name: CBC with Diff; Complete Time: 15: [facility] 03/15 13:42 Order name: Ckmb; Complete Time: 15: [facility] 03/15 13:42 Order name: CPK; Complete Time: 15: [facility] 03/15 13:42 Order name: Lactate; Complete Time: 15: [facility] 03/15 13:42 Order name: LFT's; Complete Time: 15: [facility] 03/15 13:42 Order name: Lipase; Complete Time: 15: [facility] 03/15 13:42 Order name: Procalcitonin; Complete Time: 15: [facility] 03/15 13:42 Order name: Protime (+inr); Complete Time: 15: [facility] 03/15 13:42 Order name: Ptt, Activated; Complete Time: 15: [facility] 03/15 13:42 Order name: Troponin (emerg Dept Use Only); Complete Time: 15: [facility] 03/15 13:42 Order name: Urine Microscopic Only; Complete Time: 14: [facility] 03/15 13:42 Order name: Chest Single View XRAY; Complete Time: 14: [facility] 03/15 13:42 Order name: Accucheck; Complete Time: 14:23 [facility] 03/15 13:42 Order name: Cardiac monitoring; Complete Time: 13: [facility] 03/15 13:42 Order name: EKG - Nurse/Tech; Complete Time: 13:58 [facility] 03/15 13:42 Order name: Amylase; Complete Time: 15: [facility] 03/15 13:42 Order name: Basic Metabolic Panel; Complete Time: 15: [facility] 03/15 13:42 Order name: Blood Culture [facility] 03/15 13:47 Order name: Urine Dipstick-Ancillary; Complete Time: 14: [facility] 03/15 14:03 Order name: Urine Culture [facility] 03/15 16:52 Order name: CT Abd/Pelvis - IV Contrast Only; Complete Time: 17:52 [facility] 03/15 13:42 Order name: IV Saline Lock - Large Bore; Complete Time: 14:15 kdr 03/15 13:42 Order name: Labs collected and sent; Complete Time: 14:15 kdr 03/15 13:42 Order name: O2 Per Protocol; Complete Time: 14:15 kdr 03/15 13:42 Order name: O2 Sat Monitoring; Complete Time: 14:14 kdr 03/15 13:42 Order name: Urine Dipstick-Ancillary (obtain specimen); Complete Time: 13:46 kdr Administered Medications: 14:33 Drug: NS 0.9% (30 ml/kg) 30 ml/kg Route: IV; Rate: bolus; Site: right antecubital; ca1 19:21 Follow up: Response: No adverse reaction; IV Status: Completed infusion; IV Intake: rr5 2100ml 14:50 Drug: morphine 4 mg Route: IVP; Site: right antecubital; bp 15:30 Follow up: Response: No adverse reaction; Pain is decreased; RASS: Alert and Calm (0) ca1 14:50 Drug: Zofran (Ondansetron) 4 mg Route: IVP; Site: right antecubital; bp 15:30 Follow up: Response: No adverse reaction; Nausea is decreased ca1 18:35 Drug: Reglan (metoCLOPramide) 10 mg Route: IVP; Site: right antecubital; ca1 19:10 Follow up: Response: No adverse reaction; Nausea is decreased ca1 18:35 Drug: morphine 4 mg {Note: rass 0.} Route: IVP; Site: right antecubital; ca1 19:10 Follow up: Response: No adverse reaction; Pain is decreased; RASS: Alert and Calm (0) ca1 18:43 Drug: Rocephin - (cefTRIAXone) 1 grams Route: IVPB; Infused Over: 30 mins; Site: right ca1 antecubital; 19:09 Follow up: Response: No adverse reaction; IV Status: Completed infusion ca1 Disposition: 03/15/21 18:52 Discharged to Home. Impression: Urinary tract infection, site not specified, Acute cystitis. - Condition is Stable. - Discharge Instructions: Urinary Tract Infection, Adult, [id number], Abdominal Pain, Adult, Ukhp-[id number]. - Prescriptions for Tramadol 50 mg Oral Tablet - take 1 tablet by ORAL route every 8 hours as needed; 16 tablet. Phenergan 25 mg Rectal Suppository - insert 1 suppository by RECTAL route every 6 hours As needed; 16 suppository. Pepcid 20 mg Oral Tablet - take 1 tablet by ORAL route once daily; 20 tablet. Bactrim DS 800- 160 mg Oral Tablet - take 1 tablet by ORAL route every 12 hours for 10 days; 20 tablet. - Medication Reconciliation Form, Thank You Letter, Antibiotic Education, Prescription Opioid Use form. - Follow up: Private Physician; When: 2 - 3 days; Reason: If symptoms return, Further diagnostic work-up, Recheck today's complaints, Continuance of care, Re-evaluation by your physician. Follow up: Mago Amaral MD; When: 2 - 3 days; Reason: If symptoms return, Further diagnostic work-up, Recheck today's complaints, Continuance of care, Re-evaluation by your physician. - Problem is an ongoing problem. - Symptoms have improved. Signatures: Dispatcher [employer] EDMS Marek Mcqueen MD MD kdr Elijah Watkins RN RN bp Martinez Kim RN RN rr5 Barbi Guillen RN RN ca1 Levon Brownlee RN RN ll1 Corrections: (The following items were deleted from the chart) 19:22 18:52 03/15/2021 18:52 Discharged to Home. Impression: Urinary tract infection, site rr5 not specified; Acute cystitis. Condition is Stable. Forms are Medication Reconciliation Form, Thank You Letter, Antibiotic Education, Prescription Opioid Use. Follow up: Private Physician; When: 2 - 3 days; Reason: If symptoms return, Further diagnostic work-up, Recheck today's complaints, Continuance of care, Re-evaluation by your physician. Follow up: Mago Amaral; When: 2 - 3 days; Reason: If symptoms return, Further diagnostic work-up, Recheck today's complaints, Continuance of care, Re-evaluation by your physician. Problem is an ongoing problem. Symptoms have improved. kdr
[2021-03-15] MEDS ORDERED: METOCLOPRAMIDE 10 MG/2mL INJ ONE (18:54)
[2021-03-15] MEDS ORDERED: CEFTRIAXONE/SWI 1gm 1 GM/10 ML SYR ONE (18:55)
[2021-03-15] MEDS ORDERED: NA CHLORIDE 0.9% 100 ML ONE (18:55)
[2021-03-15 19:34] VITALS: TEMP 98.2
[2021-03-15 19:53] VITALS: BP 115/70; O2SAT 98
--- NOTE | 2021-03-20 12:09 | EKG ---
Test Date: 2021-03-15 Test Time: 13:54:15 Title I Paraprofessional: BERNY MEASUREMENT RESULTS: Intervals: Rate: 84 CA: 154 QRSD: 80 QT: 416 QTc: 491 [place]: P: 57 CA: 154 QRS: 62 T: 63 INTERPRETIVE STATEMENTS: Normal sinus rhythm Prolonged QT Abnormal ECG Compared to ECG 11/13/2019 11:47:01 Prolonged QT interval now present Electronically Signed On 03-20-21 11:55:39 CDT by Berhane Raphael
== END 2021-03-15 19:22 | disposition home or self-care (01) ==
LOC: ER 13:00
DX: N30.00 Acute cystitis without hematuria (principal); Z88.1 Allergy status to other antibiotic agents; Z91.018 Allergy to other foods
CPT/HCPCS: 96365; 93005; 87040 ×2; 87088; 85025; 87086; 80048; 36415; 82150; 82550; 85610; 80076; 83605; 85730; 84484; 82553; 83690; 84145; 74177; 71045; 96375; 99284; 96366; Q9967; J2765; J0696; J7030; J2405; 81003; 81015

== ENCOUNTER 2024-08-18 09:44 | Emergency (ER) | payer OTHER, BC ==
--- OUTSIDE RECORDS SUMMARY | 2024-08-18 09:47 | XMS REPORT | Clinical Summary ---
Author Name Unknown Organization [facility] Address [address] [place] [address] Care Team Providers Care [employer] Name Role Phone Mago Amaral MD Unavailable [phone] Mago Amaral MD Unavailable [phone] Physician, Outside Primary Care Provider Unavail able Helena Harrington Unavailable Immunizations Name Administration Dates Next Due Moderna SARS-CoV-2 Vaccination 01/16/2021,2020 Social History Tobacco Use Types Packs/Day Years Used Date Smoking Tobacco: Never Assessed Sex and Gender Information Value Date Recorded Sex Assigned at Female 01/02/2022 9:34 AM CDT Gender Identity Female 01/02/2022 9:34 AM CDT Sexual Orientation Straight 01/02/2022 9: 34 AM CDT Job Start Date Occupation Industry Not on file Not on file Not on file Plan of Treatment Health Maintenance Due Date Last Done Comments COVID-19 Vaccine (2023-2 5 season) 2024 10/25/2021, 01/16/2021, 12/19/2020 Influenza Vaccine (#1) 2024 Pneumococcal Vaccine: Pediatrics (0 to 5 Years) and At-Risk Patients (6 to 64 Years) Aged Out No longer eligible b ased on patient's age to complete this topic Care Teams [employer] Relationship Specialty Start Date End Date Mago Amaral MD [address] [id number] [email or web address] PCP - External Referring Obstetrics/Gynecology 12/23/21 Mago Amaral MD [address] [place] [id number] [email or web address] PCP - External Follow Up A Obstetrics/Gynecology 12/23/21 Phys[place], [place] [address] PCP - General Oncology 12/23/21 Helena Harrington [address] [facility] [address] [place] [address] PCP - External Follow Up B 02/18/23
[2024-08-18] MEDS ORDERED: DIPHENHYDRAMINE 50 MG/ML VIAL ONE (10:09)
[2024-08-18] MEDS ORDERED: NA CHLORIDE 0.9% 1,000 ML ONE (10:09)
[2024-08-18] MEDS ORDERED: droPERidol 5 MG/2 ML VIAL ONE (10:09)
[2024-08-18 10:52] LABS: Absolute Basophils 0.1 K/uL (0-0.5); Absolute Eosinophils 0.1 K/uL (0-0.5); Absolute Lymphocytes (CBC) 2.3 K/uL (0.7-4.9); Absolute Monocytes 0.6 K/uL (0.1-1.3); Absolute Neutrophil 5.7 K/uL (1.8-8.0); Eosinophils % 1.4 % (0-4.4); Hematocrit 43.4 % (36.0-45.0); Hemoglobin 14.7 g/dL (12.0-15.0); Lymphocytes % 26.1 % (15.3-44.8); MCH 32.6 pg (27.0-35.0); MCHC 33.9 g/dL (32.0-36.0); MCV 96.1 fL (80-100); MPV 10.1 fL (7.6-11.3); Monocytes % 6.9 % (3.3-12.3); Neutrophils % 64.6 % (41.7-73.7); Platelets 177 thou/uL (152-406); RBC Red Blood Cell Count 4.51 M/uL (3.86-4.86); Red Cell Distribution Width 13.5 % (12.1-15.2); Specific Gravity > 1.030 (1.005-1.030); Urine Bacteria None Seen /HPF (<20); Urine Bilirubin NEGATIVE (Negative); Urine Blood 1+ (Negative); Urine Clarity Turbid (Clear); Urine Color Yellow (Yellow); Urine Culture Reflex Order NOT NEEDED; Urine Glucose NEGATIVE (Negative); Urine Ketones NEGATIVE (Negative); Urine Micro Reflex YN NO BILL MICROSCOPIC; Urine Mucus Slight /HPF (None Seen); Urine Nitrite NEGATIVE (Negative); Urine Protein TRACE (Negative); Urine RBC <5 /HPF (None Seen); Urine Urobilinogen 1+ (Normal); Urine WBC <5 /HPF (<5); Urine Yeast (Budding) Trace /HPF (None Seen)
[2024-08-18 11:09] LABS: ALT/SGPT 27 U/L (13-56); AST/SGOT 23 U/L (15-37); Albumin 3.4 g/dL (3.4-5.0); Alkaline Phosphatase 58 U/L (45-117); Anion Gap 7.2 mEq/L (5.0-15.0); BUN Blood Urea Nitrogen 14 mg/dL (7-18); Bicarbonate 24 mEq/L (21-32); Bilirubin Total 0.6 mg/dL (0.2-1.0); Globulin 3.4 g/dL (2.3-3.5); Glomerular Filtration Rate 75 ml/min (=/>90); Glucose Level 96 mg/dL (74-106); Potassium 4.2 mEq/L (3.5-5.1); Protein, Total 6.8 g/dL (6.4-8.2); Sodium Level 139 mEq/L (136-145); Troponin High Sensitivity 3.2 pg/mL (<58.9)
[2024-08-18 11:10] LABS: Bilirubin Direct < 0.2 mg/dL (0-0.2); Bilirubin Indirect, Calculated 0.4 mg/dL (0.2-0.8)
--- NOTE | 2024-08-18 11:41 | ER ---
Nurse's Notes [facility] Name: Aida Ahuja Age: 58 yrs Sex: Female : 1965 Arrival Date: 08/18/2024 Time: 09:44 Bed 4 Private MD: Diagnosis: Lightheadedness;Headache;Nausea Presentation: 08/18 09:49 Chief complaint: Patient states: "I had a mammogram on Thursday and ever since then I've aa5 had episodes of feeling very dizzy like I am going to pass out and I get disoriented". Pt had near syncopal episode witnessed by registration staff upon arrival. 09:49 Coronavirus screen: At this time, the client does not indicate any symptoms associated aa5 with coronavirus-19. Ebola Screen: Patient denies travel to an Ebola-affected area in the 21 days before illness onset. Initial Sepsis Screen: Does the patient meet any 2 criteria? No. Patient's initial sepsis screen is negative. Does the patient have a suspected source of infection? No. Patient's initial sepsis screen is negative. Risk Assessment: Do you want to hurt yourself or someone else? Patient reports no desire to harm self or others. Onset of symptoms was July 2024. 09:49 Acuity: CARLOS 3 aa5 09:49 Method Of Arrival: Ambulatory aa5 Historical: - Allergies: 09:49 Levaquin; aa5 09:49 no gluten; aa5 - PMHx: 09:49 Celiac Disease; aa5 - PSHx: 09:49 Cholecystectomy; Total abdominal hysterectomy; tumor removal from chest; aa5 - Immunization history:: Adult Immunizations unknown. - Infectious Disease History:: Denies. - Social history:: Smoking status: Patient denies any tobacco usage or history of. Screenin:11 [facility] ED Fall Risk Assessment (Adult) History of falling in the last 3 months, tm6 including since admission No falls in past 3 months (0 pts) Confusion or Disorientation No (0 pts) Intoxicated or Sedated No (0 pts) Impaired Gait No (0 pts) Mobility Assist Device Used No (0 pt) Altered Elimination No (0 pt) Score/Fall Risk Level 0 - 2 = Low Risk Oriented to surroundings, Maintained a safe environment, Educated pt \\T\\ family on fall prevention, incl call for assistance when getting out of bed. Abuse screen: Denies threats or abuse. Denies injuries from another. Nutritional screening: No deficits noted. Tuberculosis screening: No symptoms or risk factors identified. Assessment: 11:17 General: Appears in no apparent distress. Behavior is calm, cooperative. Pain: Denies tm6 pain. Neuro: Reports dizziness, since last week. Cardiovascular: Patient's skin is warm and dry. Respiratory: Airway is patent Respiratory effort is even, unlabored. GI: No signs and/or symptoms were reported involving the gastrointestinal system. Abdomen is flat, non-distended. : No signs and/or symptoms were reported regarding the genitourinary system. EENT: No signs and/or symptoms were reported regarding the EENT system. Derm: No signs and/or symptoms reported regarding the dermatologic system. Musculoskeletal: No signs and/or symptoms reported regarding the musculoskeletal system. 12:24 Reassessment: Patient and/or family updated on plan of care and expected duration. Pain tm6 level reassessed. Patient is alert, oriented x 3, equal unlabored respirations, skin warm/dry/pink. Vital Signs: 09:49 BP 159 / 81; Pulse 85; Resp 22 S; Temp 97.8(TE); Pulse Ox 99% on R/A; aa5 11:10 BP 142 / 79; Pulse 76; Resp 18; Pulse Ox 98% on R/A; MAP 95 mmHg; tm6 12:23 BP 114 / 75; Pulse 76; Resp 19; Temp 97.8; Pulse Ox 98% on R/A; MAP 88 mmHg; Pain 0/10; tm6 12:23 Pain Scale: Adult tm6 ED Course: 09:49 Patient arrived in ED. aa5 09:49 Marcellus Yang MD is Attending Physician. ec2 09:49 Elijah Watkins, ALEAH is Primary Nurse. bp 09:49 Arm band placed on. aa5 09:54 Triage completed. aa5 10:00 Patient has correct armband on for positive identification. Bed in low position. Call tm6 light in reach. Side rails up X 1. Provided Education on: use of call carrizales. Client placed on continuous cardiac and pulse oximetry monitoring. NIBP monitoring applied. shelter monitor on. Pulse ox on. NIBP on. Door closed. Noise minimized. Warm blanket given. Pillow given. 10:35 No provider procedures requiring assistance completed. Initial lab(s) drawn, by me, bp sent to lab. Urine collected: clean catch specimen, clear, EKG done, by ED staff, reviewed by Marcellus Yang MD. Inserted saline lock: 20 gauge in right forearm, using aseptic technique. Blood collected. Flushed with 10 mL NS. 10:54 XRAY Chest (1 view) In Process Unspecified. EDMS 12:24 IV discontinued, intact, bleeding controlled, No redness/swelling at site. Pressure tm6 dressing applied. Administered Medications: 10:34 Drug: NS 0.9% IV 1000 ml IV at 1000 ml once; to be given as a bolus over 60 minutes bp Route: IV; Rate: 1000 ml; Site: right forearm; 11:30 Follow up: Response: No adverse reaction; IV Status: Completed infusion; IV Intake: tm6 1000ml 10:34 Drug: Droperidol IVP 1.25 mg IVP once Route: IVP; Site: right forearm; bp 12:24 Follow up: Response: No adverse reaction tm6 10:34 Drug: diphenhydrAMINE IVP 50 mg IVP once Route: IVP; Site: right forearm; bp 12:24 Follow up: Response: No adverse reaction tm6 Medication: 11:17 VIS not applicable for this client. tm6 Intake: 11:30 IV: 1000ml; Total: 1000ml. tm6 Outcome: 11:41 Discharge ordered by . ec2 12:24 Discharged to home via wheelchair, with family, tm6 12:24 Condition: stable 12:24 Discharge instructions given to patient, family, Instructed on discharge instructions, follow up and referral plans. medication usage, Demonstrated understanding of instructions, follow-up care, medications, Prescriptions given X 1, 12:24 Patient left the ED. tm6 Signatures: Dispatcher [employer] Rosalia Nazario, RN RN [email or web address] Elijah Watkins RN RN bp Marcellus Yang MD MD 2 Kalli Cassidy RN RN tm6
--- NOTE | 2024-08-18 11:41 | EDPHYS ---
Physician Documentation [facility] Name: Aida Ahuja Age: 58 yrs Sex: Female : 1965 Arrival Date: 08/18/2024 Time: 09:44 Bed 4 Private MD: ED Physician Marcellus Yang HPI: 08/18 09:58 This 58 yrs old Female presents to ER via Ambulatory with complaints of Near ec2 Syncope. 09:58 Patient arrives today for evaluation of bouts of lightheadedness. Patient reports that ec2 she has experienced several episodes of lightheadedness for the past several days. Patient reports some associated nausea, states that she is also having some occasional headaches. Patient reports no vomiting, no diarrhea, no cough or cold symptoms, no chest pain, difficulty breathing. Patient reports that she has "maybe mast cell activation syndrome ". Historical: - Allergies: 09:49 Levaquin; aa5 09:49 no gluten; aa5 - PMHx: 09:49 Celiac Disease; aa5 - PSHx: 09:49 Cholecystectomy; Total abdominal hysterectomy; tumor removal from chest; aa5 - Immunization history:: Adult Immunizations unknown. - Infectious Disease History:: Denies. - Social history:: Smoking status: Patient denies any tobacco usage or history of. ROS: 09:58 Constitutional: as per hpi ec2 Exam: 09:58 Constitutional: GEN: NAD Head: atraumatic Eyes: EOMI Ears: External ears are ec2 normal. CV: regular rate LUNGS: no respiratory distress ABD: non-distended SKIN: no evidence of rashes MSK: no evidence of trauma. Vital Signs: 09:49 BP 159 / 81; Pulse 85; Resp 22 S; Temp 97.8(TE); Pulse Ox 99% on R/A; aa5 11:10 BP 142 / 79; Pulse 76; Resp 18; Pulse Ox 98% on R/A; MAP 95 mmHg; tm6 12:23 BP 114 / 75; Pulse 76; Resp 19; Temp 97.8; Pulse Ox 98% on R/A; MAP 88 mmHg; Pain 0/10; tm6 12:23 Pain Scale: Adult tm6 MDM: 09:49 Medical Screening Exam initiated ec2 09:58 Data reviewed: vital signs. ED course: Patient arrives today for evaluation of ec2 lightheadedness. Examination remarkable for well-appearing nontoxic individuals otherwise in no acute distress is otherwise hemodynamically stable. Will obtain lab work, EKG, chest x-ray. Differential diagnoses included processes such as anemia, electrolyte disturbances, arrhythmia. . 10:33 ED course: EKG independently reviewed and interpreted by me, shows normal sinus rhythm, ec2 rate 69, no acute ST segment elevation, intervals are nonactionable.. 11:14 ED course: Metabolic profile reassuring, LFTs nonactionable, troponin within normal ec2 ranges, urine is noninfectious appearing. CBC reassuring. . 11:26 ED course: Chest x-ray independently reviewed and interpreted by me, shows no acute ec2 intrathoracic process. On reassessment patient is well-appearing no acute distress. Will discharge home have the patient follow-up PCP. Return precautions given.. 10 09:57 Order name: Basic Metabolic Panel; Complete Time: 11:14 ec2 08/18 09:57 Order name: CBC with Diff; Complete Time: 12:07 ec2 08/18 09:57 Order name: LFT's; Complete Time: 11:14 ec2 08/18 09:57 Order name: Troponin HS; Complete Time: 11:14 ec2 08/18 09:57 Order name: UAM; Complete Time: 10:59 ec2 08/18 11:04 Order name: CBC Smear Scan; Complete Time: 12:07 EDMS 08/18 09:57 Order name: XRAY Chest (1 view); Complete Time: 12:07 ec2 08/18 09:57 Order name: EKG; Complete Time: 09:57 ec2 08/18 09:57 Order name: Cardiac monitoring; Complete Time: 10:01 ec2 08/18 09:57 Order name: EKG - Nurse/Tech; Complete Time: 10:35 ec2 08/18 09:57 Order name: IV Saline Lock; Complete Time: 10:35 ec2 08/18 09:57 Order name: Labs collected and sent; Complete Time: 10:35 ec2 08/18 09:57 Order name: O2 Per Protocol; Complete Time: 10:01 ec2 08/18 09:57 Order name: O2 Sat Monitoring; Complete Time: 10:01 ec2 08/18 09:57 Order name: Misc. Order: droperidol for ARELLANO and nausea; Complete Time: 10:01 ec2 Administered Medications: 10:34 Drug: NS 0.9% IV 1000 ml IV at 1000 ml once; to be given as a bolus over 60 minutes bp Route: IV; Rate: 1000 ml; Site: right forearm; 11:30 Follow up: Response: No adverse reaction; IV Status: Completed infusion; IV Intake: tm6 1000ml 10:34 Drug: Droperidol IVP 1.25 mg IVP once Route: IVP; Site: right forearm; bp 12:24 Follow up: Response: No adverse reaction tm6 10:34 Drug: diphenhydrAMINE IVP 50 mg IVP once Route: IVP; Site: right forearm; bp 12:24 Follow up: Response: No adverse reaction tm6 Disposition Summary: 08/18/24 11:41 Discharge Ordered Notes: Location: Home ec2 Condition: Stable ec2 Diagnosis - Lightheadedness ec2 - Headache ec2 - Nausea ec2 Followup: ec2 - With: Private Physician - When: - Reason: Re-evaluation by your physician Discharge Instructions: - Discharge Summary Sheet ec2 - General Headache Without Cause ec2 Forms: - Medication Reconciliation Form ec2 - Antibiotic Education ec2 - Prescription Opioid Use ec2 - Patient Portal Instructions ec2 - Leadership Thank You Letter ec2 Prescriptions: - Compazine 10 mg Oral Tablet - take 1 tablet ORAL route every 8 hours As needed; 20 tablet; Refills: 0, ec2 Product Selection Permitted Signatures: Dispatcher [employer] Rosalia Nazario RN RN aa5 Elijah Watkins RN RN bp aMrcellus Yang MD MD ec2 Kalli Cassidy RN tm6
--- NOTE | 2024-08-18 11:44 | RAD REPORT ---
EXAMINATION: ONE VIEW CHEST XR CLINICAL INDICATION: Female, 58 years old.,COUGH TECHNIQUE: Frontal chest projection is submitted. Examination is limited by patient positioning and t echnique. COMPARISON: 11/01/2023. FINDINGS: The lungs are hypoinflated and clear. No pneumothorax or sizable effusion. The heart is normal in si ze. Mediastinal contours are unremarkable. IMPRESSION: No acute intrathoracic abnormalities.
[2024-08-18 11:58] LABS: Platelet Estimate ADEQ; White Blood Cell Scan OK (OK)
[2024-08-18 11:59] LABS: Blood Morphology Comment NOT SEEN (NOT SEEN)
[2024-08-18 12:47] VITALS: TEMP 97.8
[2024-08-18 12:48] VITALS: O2SAT 98
[2024-08-18 12:49] VITALS: BP 114/75
--- NOTE | 2024-08-22 12:25 | EKG ---
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
== END 2024-08-18 12:24 | disposition home or self-care (01) ==
LOC: ER 09:44
DX: R42 Dizziness and giddiness (principal); R51.9 Headache, unspecified; R11.0 Nausea
CPT/HCPCS: 96361; 93005; 85025; 81001; 80048; 36415; 80076; 84484; 71045; 96375; 96374; 99285; J1200; J1790; J7030